=== PATIENT | male | born 1985 | race Caucasian/White ===

== ENCOUNTER → 2018-06-10 | Outpatient (CLI) | payer BC ==
[2018-06-10 11:03] LABS: Basophils # (A) 0.1 k/uL (0-0.2); Basophils % (A) 1 %; Eosinophils # (A) 0.2 k/uL (0-0.7); Eosinophils % (A) 3 %; HCT 45.6 % (39.0-53.0); HGB 15.7 gm/dL (13.0-17.5); Lymphocytes # (A) 2.3 k/uL (1.0-4.8); Lymphocytes % (A) 32 %; MCH 28.4 pg (25.0-35.0); MCHC 34.5 g/dL (31.0-37.0); MCV 82.5 fL (80.0-100.0); Mean Platelet Volume 7.3; Monocytes # (A) 0.3 k/uL (0-1.0); Monocytes % (A) 4 %; Neutrophils # (A) 4.1 k/uL (1.3-7.7); Neutrophils % (A) 58 %; Platelet Count 259 k/uL (150-450); RBC 5.52 m/uL (4.30-5.90); RDW 15.9 % (11.5-15.5); WBC 7.1 k/uL (3.8-10.6)
[2018-06-10 11:39] LABS: Appearance,Urine Clear (Clear); Bilirubin,Urine Negative (Negative); Blood,Urine Trace (Negative); Color,Urine Yellow; Glucose,Urine (UA) Negative (Negative); Ketones,Urine Negative (Negative); Leukocyte Esterase,Urine Negative (Negative); Mucus,Urine Rare /hpf; Nitrite,Urine Negative (Negative); PH, Urine 5.5 (5.0-8.0); Protein,Urine Negative (Negative); RBC,Urine 1 /hpf (0-5); Specific Gravity,Urine 1.027 (1.001-1.035); Urobilinogen,Urine <2.0 mg/dL (<2.0)
[2018-06-10 17:25] LABS: Albumin 4.7 g/dL (3.80-4.90); Albumin/Globulin Ratio 2.14 (1.60-3.17); Anion Gap 6.8 mmol/L (4.00-12.00); Calcium 9.6 mg/dL (8.7-10.3); Carbon Dioxide 27.2 mmol/L (21.6-31.8); Globulin 2.2 g/dL (1.6-3.3); LDL Cholesterol,Calculated 50.8 mg/dL (0.0-131.0); Potassium 4.9 mmol/L (3.5-5.5); Total Bilirubin 0.4 mg/dL (0.3-1.2); Total Protein 6.9 g/dL (6.2-8.2); VLDL Calculation 57.2 mg/dL (5.00-40.00)
[2018-06-10 17:33] LABS: T4, Free (Free Thyroxine) 0.9 ng/dL (0.80-1.80)
[2018-06-10 21:21] LABS: Hemoglobin A1C 5.2 % (4.0-6.0)
== END ==
LOC: LABWHC1 10:04
PROVIDERS: ATTEND Family Medicine
DX: Z00.00 Encounter for general adult medical examination without abnormal findings (principal); E66.01 Morbid (severe) obesity due to excess calories; N46.9 Male infertility, unspecified
CPT/HCPCS: 36415; 80053; 80061; 81001; 83036; 84439; 84443; 85025

== ENCOUNTER → 2021-01-05 | Outpatient (CLI) | payer BC ==
--- NOTE | 2021-01-05 15:43 | US ---
EXAMINATION TYPE: US venous doppler duplex LE RT DATE OF EXAM: 01/05/2021 3:29 PM COMPARISON: Previous exam 11/28/2015 CLINICAL HISTORY: M25.471 EFFUSION RIGHT ANKLE. Swelling right lower extremity SIDE PERFORMED: Right TECHNIQUE: The lower extremity deep venous system is examined utilizing real time linear array sonog juan with graded compression, doppler sonography and color-flow sonography. VESSELS IMAGED: Common Femoral Vein Deep Femoral Vein Greater Saphenous Vein * Femoral Vein Popliteal Vein Small Saphenous Vein * Proximal Calf Veins (* superficial vessels) There is normal flow, compressibility, vascular waveforms. Right Leg: Negative for DVT IMPRESSION: No evident deep venous thrombosis within the right lower extremity from the level of the knee centrally
== END | disposition home or self-care (01) ==
LOC: RADUSWWP 15:12
PROVIDERS: ATTEND Family Medicine
DX: M25.471 Effusion, right ankle (principal)

== ENCOUNTER 2022-06-11 09:38 | Inpatient (IN) | payer BC ==
[2022-06-11] MEDS ORDERED: IBUPROFEN 600 MG TAB PO STA (10:33)
[2022-06-11] MEDS ORDERED: ACETAMINOPHEN TAB 500 MG TAB PO STA (10:33)
[2022-06-11] MEDS ORDERED: HYDROmorphone 0.5 MG/0.5 ML SYRINGE IVP STA (10:33)
[2022-06-11] MEDS ORDERED: SODIUM CHLORIDE 0.9% 1,000 ML IV STA (10:33)
[2022-06-11] MEDS ORDERED: ONDANSETRON 4 MG/2 ML VIAL IVP STA (10:33)
--- NOTE | 2022-06-11 10:36 | ED ---
General Adult HPI - General Chief complaint: Abdominal Pain Stated complaint: Abd pain Time Seen by Provider: 06/11/22 10:05 Source: patient, RN notes reviewed, old records reviewed Mode of arrival: ambulatory Limitations: no limitations - History of Present Illness Initial comments: This is a 37-year-old male who presents emergency Department complaining of left lower quadrant abdominal pain. Patient states it started about 36 hours ago. Patient states the pain is gotten progressive worse. Patient states anytime he tries have a bowel movement it hurts. Patient states he has a fever. Patient is nauseous but denies vomiting. Patient denies any diarrhea. Patient's chest pain palpitations difficulty breathing shortest breath. - Related Data Home Medications Medication Instructions Recorded Confirmed Citalopram Hydrobromide [CeleXA] 10 mg PO HS 11/18/15 11/19/15 HYDROcodone/APAP 5-325MG [[place] 1 - 2 tab PO Q6H PRN 11/18/15 11/19/15 5-325] Multivitamin [Men's Multi-Vitamin] 1 each PO DAILY 11/18/15 11/19/15 Temazepam [Restoril] 30 mg PO HS PRN 11/18/15 11/19/15 traZODone HCL [Desyrel] 100 mg PO HS 11/18/15 11/19/15 Previous Rx's Medication Instructions Recorded HYDROcodone/APAP 5-325MG [[place] 5] 1 - 2 each PO Q6HR PRN #60 tab 11/19/15 Allergies Allergy/AdvReac Type Severity Reaction Status Date / Time erythromycin base Allergy Unknown Verified 06/11/22 10:01 Childhood Review of Systems ROS Statement: Those systems with pertinent positive or pertinent negative responses have been documented in the HPI. ROS Other: All systems not noted in ROS Statement are negative. Past Medical History History of Any Multi-Drug Resistant Organisms: None Reported Past Surgical History: Appendectomy, Orthopedic Surgery Past Psychological History: No Psychological Hx Reported Smoking Status: Never smoker Past Alcohol Use History: Rare Past Drug Use History: None Reported General Exam - General Exam Comments Initial Comments: GENERAL: Patient is well-developed and well-nourished. Patient is nontoxic and well-hy drated and is in mild distress. ENT: Neck is soft and supple. No significant lymphadenopathy is noted. Oropharynx is clear. Moist mucous membranes. Neck has full range of motion without eliciting any pain. EYES: The sclera were anicteric and conjunctiva were pink and moist. Extraocular movements were intact and pupils were equal round and reactive to light. Eyelids were unremarkable. PULMONARY: Unlabored respirations. Good breath sounds bilaterally. No audible rales rhonchi or wheezing was noted. CARDIOVASCULAR: There is a regular rate and rhythm without any murmurs gallops or rubs. ABDOMEN: Patient has left lower quadrant abdominal tenderness with some rebound. SKIN: Skin is clear with no lesions or rashes and otherwise unremarkable. NEUROLOGIC: Patient is alert and oriented x3. Cranial nerves II through XII are grossly intact. Motor and sensory are also intact. Normal speech, volume and content. Symmetrical smile. MUSCULOSKELETAL: Normal extremities with adequate strength and full range of motion. [id number] LYMPHATICS: No significant lymphadenopathy is noted PSYCHIATRIC: Normal psychiatric evaluation. Limitations: no limitations Course Vital Signs 06/11/22 06/11/22 06/11/22 09:58 10:01 11:30 Temperature 99 F 103.1 F H 101.3 F H Pulse Rate 98 Respiratory 18 Rate Blood Pressure 112/71 O2 Sat by Pulse 98 Oximetry 06/11/22 06/11/22 13:59 14:10 Temperature 98.7 F 97 F L Pulse Rate 78 Respiratory 18 Rate Blood Pressure 106/59 O2 Sat by Pulse 97 Oximetry Medical Decision Making - Medical Decision Making Was pt. sent in by a medical professional or institution (, PA, PLUMBING INSTRUCTOR, urgent care, hospital, or correction...) When possible be specific @ -No Did you speak to anyone other than the patient for history (EMS, parent, family, police, friend...)? What history was obtained from this source @ -No Did you review nursing and triage notes (agree or disagree)? Why? @ -I reviewed and agree with nursing and triage notes Were old charts reviewed (outside hosp., previous admission, EMS record, old EKG, old radiological studies, urgent care reports/EKG's, correction records)? Report findings @ -I reviewed prior lab work Differential Diagnosis (chest pain, altered mental status, abdominal pain women, abdominal pain men, vaginal bleeding, weakness, fever, dyspnea, syncope, headache, dizziness, GI bleed, back pain, seizure, CVA, palpatations, mental health, musculoskeletal)? @ -Differential Abdominal Pain Men: Appendicitis, cholecystitis, diverticulosis, ischemic bowel, pancreatitis, hepatitis, UTI, gastroenteritis, AAA, incarcerated hernia, bowel obstruction, constipation, inflammatory bowel, hepatitis, peptic ulcer disease, splenic infarction, perforated viscus, testicular torsion, this is not meant to be an all-inclusive list EKG interpreted by me (3pts min.). @ -As above X-rays interpreted by me (1pt min.). @ -None done CT interpreted by me (1pt min.). @ -CT of the abdomen and pelvis was interpreted by myself shows diverticula this was bowel perforation U/S interpreted by me (1pt. min.). @ -None What testing was considered but not performed or refused? (CT, X-rays, U/S, labs)? Why? @ -None What meds were considered but not given or refused? Why? @ -None Did you discuss the management of the patient with other professionals (professionals i.e. DrCari, PA, PLUMBING INSTRUCTOR, lab, RT, psych nurse, forensic social worker, cobol engineer, t eacher, staff combat information center officer, rn case manager hospice)? Give summary @ -I spoke with Dr. Alvarado and he did not want to admit the patient to his service because he didn't think there was immediate surgery necessary so he has to be admitted to medicine I told the medicine does not want admitted and he then repeated 2 admitted to medicine. I spoke with Dr. Goldberg he was reluctant to take it but because the surgeon refused he took the patient as his admission Was smoking cessation discussed for >3mins.? @ -No Was critical care preformed (if so, how long)? @ -35 minutes Were there social determinants of health that impacted care today? How? (Homelessness, low income, unemployed, alcoholism, drug addiction, transportation, low edu. Level, literacy, decrease access to med. care, long term, rehab)? @ -No Was there de-escalation of care discussed even if they declined (Discuss DNR or withdrawal of care, Hospice)? DNR status @ -No What co-morbidities impacted this encounter? (DM, HTN, Smoking, COPD, CAD, Cancer, CVA, ARF, Chemo, Hep., AIDS, mental health diagnosis, sleep apnea, morbid obesity)? @ -None Was patient admitted / discharged? Hospital course, mention meds given and route, prescriptions, significant lab abnormalities, going to OR and other pertinent info. @ -Patient's CT showed CT with bowel perforation. I spoke with Dr. Goldberg admitted the patient initially refused but because the surgeon then refused to take the patient Dr. Goldberg reluctantly took the patient. Patient was given antibiotics in the emergency department pain medication as well as Zofran. Undiagnosed new problem with uncertain prognosis? @ -No Drug Therapy requiring intensive monitoring for toxicity (Heparin, Nitro, I nsulin, Cardizem)? @ -No Were any procedures done? @ -No Diagnosis/symptom? @ -Diverticulitis with perforation Acute, or Chronic, or Acute on Chronic? @ -Acute Uncomplicated (without systemic symptoms) or Complicated (systemic symptoms)? @ -Complicated Side effects of treatment? @ -No Exacerbation, Progression, or Severe Exacerbation? @ -No Poses a threat to life or bodily function? How? (Chest pain, [place], [place], pneumonia, PE, COPD, DKA, ARF, appy, cholecystitis, CVA, Diverticulitis, Homicidal, Suicidal, threat to staff... and all critical care pts) @ -Yes this could lead to sepsis and could lead to end organ dysfunction - Lab Data Result diagrams: 06/11/22 10:40 06/11/22 10:40 Lab Results 06/11/22 06/11/22 06/11/22 Range/Units 10:40 10:40 10:40 WBC 9.5 (3.8-10.6) k/uL RBC 5.21 (4.30-5.90) m/uL Hgb 15.1 (13.0-17.5) gm/dL Hct 43.1 (39.0-53.0) % MCV 82.7 (80.0-100.0) fL MCH 29.0 (25.0-35.0) pg MCHC 35.1 (31.0-37.0) g/dL RDW 14.7 (11.5-15.5) % Plt Count 196 (150-450) k/uL MPV 7.7 Neutrophils % 84 % Lymphocytes % 9 % Monocytes % 4 % Eosinophils % 2 % Basophils % 0 % Neutrophils # 8.0 H (1.3-7.7) k/uL Lymphocytes # 0.9 L (1.0-4.8) k/uL Monocytes # 0.4 (0-1.0) k/uL Eosinophils # 0.2 (0-0.7) k/uL Basophils # 0.0 (0-0.2) k/uL Sodium 140 (137-145) mmol/L Potassium 4.3 (3.5-5.1) mmol/L Chloride 104 (98-107) mmol/L Carbon Dioxide 27 (22-30) mmol/L Anion Gap 9 mmol/L BUN 15 (9-20) mg/dL Creatinine 1.09 (0.66-1.25) mg/dL Est GFR (CKD-EPI)AfAm >90 (>60 ml/min/1.73 sqM) Est GFR (CKD-EPI)NonAf 85 (>60 ml/min/1.73 sqM) Glucose 120 H (74-99) mg/dL Plasma Lactic Acid Claude 1.1 (0.7-2.0) mmol/L Calcium 9.0 (8.4-10.2) mg/dL Total Bilirubin 1.6 H (0.2-1.3) mg/dL AST 21 (17-59) U/L ALT 39 (4-49) U/L Alkaline Phosphatase 71 (38-126) U/L Total Protein 7.0 (6.3-8.2) g/dL Albumin 4.2 (3.5-5.0) g/dL Amylase 38 (30-110) U/L Lipase 51 (23-300) U/L Urine Color Urine Appearance (Clear) Urine pH (5.0-8.0) Ur Specific [place] (1.001-1.035) Urine Protein (Negative) Urine Glucose (UA) (Negative) Urine Ketones (Negative) Urine Blood (Negative) Urine Nitrite (Negative) Urine Bilirubin (Negative) Urine Urobilinogen (<2.0) mg/dL Ur Leukocyte Esterase (Negative) Urine RBC (0-5) /hpf Urine WBC (0-5) /hpf 06/11/22 Range/Units 12:00 WBC (3.8-10.6) k/uL RBC (4.30-5.90) m/uL Hgb (13.0-17.5) gm/dL Hct (39.0-53.0) % MCV (80.0-100.0) fL MCH (25.0-35.0) pg MCHC (31.0-37.0) g/dL RDW (11.5-15.5) % Plt Count (150-450) k/uL MPV Neutrophils % % Lymphocytes % % Monocytes % % Eosinophils % % Basophils % % Neutrophils # (1.3-7.7) k/uL Lymphocytes # (1.0-4.8) k/uL Monocytes # (0-1.0) k/uL Eosinophils # (0-0.7) k/uL Basophils # (0-0.2) k/uL Sodium (137-145) mmol/L Potassium (3.5-5.1) mmol/L Chloride (98-107) mmol/L Carbon Dioxide (22-30) mmol/L Anion Gap mmol/L BUN (9-20) mg/dL Creatinine (0.66-1.25) mg/dL Est GFR (CKD-EPI)AfAm (>60 ml/min/1.73 sqM) Est GFR (CKD-EPI)NonAf (>60 ml/min/1.73 sqM) Glucose (74-99) mg/dL Plasma Lactic Acid Claude (0.7-2.0) mmol/L Calcium (8.4-10.2) mg/dL Total Bilirubin (0.2-1.3) mg/dL AST (17-59) U/L ALT (4-49) U/L Alkaline Phosphatase (38-126) U/L Total Protein (6.3-8.2) g/dL Albumin (3.5-5.0) g/dL Amylase (30-110) U/L Lipase (23-300) U/L Urine Color Yellow Urine Appearance Clear (Clear) Urine pH 6.5 (5.0-8.0) Ur Specific [place] >1.050 H (1.001-1.035) Urine Protein Trace H (Negative) Urine Glucose (UA) Negative (Negative) Urine Ketones Trace H (Negative) Urine Blood Small H (Negative) Urine Nitrite Negative (Negative) Urine Bilirubin Negative (Negative) Urine Urobilinogen <2.0 (<2.0) mg/dL Ur Leukocyte Esterase Negative (Negative) Urine RBC 10 H (0-5) /hpf Urine WBC <1 (0-5) /hpf Critical Care Time Critical Care Time: Yes Total Critical Care Time: 35 Disposition Clinical Impression: Diverticulitis of colon with perforation Disposition: ADMITTED IP TO THIS HOSP Referrals: Greg Pascual DO [Primary Care Provider] - 1-2 days Time of Disposition: 14:14
[2022-06-11 10:51] LABS: Basophils % (A) 0 %; Eosinophils # (A) 0.2 k/uL (0-0.7); Eosinophils % (A) 2 %; HCT 43.1 % (39.0-53.0); HGB 15.1 gm/dL (13.0-17.5); Lymphocytes # (A) 0.9 k/uL (1.0-4.8); Lymphocytes % (A) 9 %; MCHC 35.1 g/dL (31.0-37.0); MCV 82.7 fL (80.0-100.0); Mean Platelet Volume 7.7; Monocytes # (A) 0.4 k/uL (0-1.0); Monocytes % (A) 4 %; Neutrophils % (A) 84 %; Platelet Count 196 k/uL (150-450); RBC 5.21 m/uL (4.30-5.90); RDW 14.7 % (11.5-15.5); WBC 9.5 k/uL (3.8-10.6)
[2022-06-11 11:02] LABS: ALT 39 U/L (4-49); AST 21 U/L (17-59); African American GFR (CKD) >90 (>60 ml/min/1.73 sqM); Albumin 4.2 g/dL (3.5-5.0); Alkaline Phosphatase 71 U/L (38-126); Amylase 38 U/L (30-110); Anion Gap 9 mmol/L; Blood Urea Nitrogen 15 mg/dL (9-20); Carbon Dioxide 27 mmol/L (22-30); Chloride 104 mmol/L (98-107); Glucose 120 mg/dL (74-99); Lipase 51 U/L (23-300); Non-African American GFR(CKD) 85 (>60 ml/min/1.73 sqM); Potassium 4.3 mmol/L (3.5-5.1); Sodium 140 mmol/L (137-145); Total Bilirubin 1.6 mg/dL (0.2-1.3)
--- NOTE | 2022-06-11 12:00 | CT ---
EXAMINATION TYPE: CT abdomen pelvis w con DATE OF EXAM: 06/11/2022 COMPARISON: None. HISTORY: LLQ abdominal pain and nausea. CT DLP: 3354.4 mGycm, Automated Exposure Control for Dose Reduction was Utilized. CONTRAST: CT scan of the abdomen and pelvis is performed with oral and with IV Contrast, patient injected with 100ml mL of Isovue 300. FINDINGS: LUNG BASES: No significant abnormality is appreciated. LIVER/GB: Liver is heterogeneously hypodense suggesting diffuse fatty infiltration. A few foci of air are seen in the left hepatic dome. Findings consistent with portal venous air. PANCREAS: No significant abnormality is seen. SPLEEN: Splenomegaly at 15.3 cm long axis coronal image 73. ADRENALS: No significant abnormality is seen. KIDNEYS: No significant abnormality is seen. BOWEL: Stomach poorly distended and thus suboptimally evaluated. No suspicious small or large bowel d ilatation. Diverticula within the left and sigmoid colon are identified. There is moderate to severe ill-defined fluid and fat stranding surrounding the proximal sigmoid colon in the left pelvis. Free a ir at this level is identified extending up the left abdominal retroperitoneum along the course of th e draining left gonadal vein. No well-formed fluid collection or abscess at this level is present. So mewhat redundant sigmoid colon incidentally noted. PROSTATE/SEMINAL VESICLES: No gross abnormality seen. LYMPH NODES: No greater than 1cm abdominal or pelvic lymph nodes are appreciated. OSSEOUS STRUCTURES: Mild acetabular spurring and joint space loss of both hips. OTHER: No significant additional abnormality is seen. IMPRESSION: CT findings consistent with perforated acute diverticulitis proximal sigmoid colon level of the left pelvis as detailed above. Case discussed with ordering ER physician via telephone at time of dictation.
[2022-06-11] MEDS ORDERED: AMPICILLIN-SULBACTAM 3 GM in SODIUM CHLORIDE 0.9% 100 ML IVPB STA (12:31)
[2022-06-11] MEDS ORDERED: NITROGLYCERIN SL TABS 0.4 MG TAB SUBLINGUAL PRN (12:34)
[2022-06-11 13:24] LABS: Appearance,Urine Clear (Clear); Bilirubin,Urine Negative (Negative); Blood,Urine Small (Negative); Color,Urine Yellow; Glucose,Urine (UA) Negative (Negative); Ketones,Urine Trace (Negative); Leukocyte Esterase,Urine Negative (Negative); Nitrite,Urine Negative (Negative); PH, Urine 6.5 (5.0-8.0); Protein,Urine Trace (Negative); RBC,Urine 10 /hpf (0-5); Urobilinogen,Urine <2.0 mg/dL (<2.0); WBC,Urine <1 /hpf (0-5)
[2022-06-11 13:40] LABS: Specific Gravity,Urine >1.050 (1.001-1.035)
[2022-06-11] MEDS ORDERED: SODIUM CHLORIDE 0.9% 1,000 ML IV ONE (14:35)
[2022-06-11] MEDS ORDERED: LORazepam 0.5 MG TAB PO PRN (16:06)
[2022-06-11] MEDS ORDERED: MELATONIN 3 MG TABLET PO PRN (16:06)
[2022-06-11] MEDS ORDERED: NALOXONE 0.4 MG/ML 1 ML VIAL IV PRN (16:06)
[2022-06-11] MEDS ORDERED: HYDROcodone/APAP 5-325MG 1 EACH TAB PO PRN (16:35)
[2022-06-11] MEDS: ENOXAPARIN 40 MG/0.4 ML SYRINGE SQ SCH (16:39)
--- NOTE | 2022-06-11 17:54 | P.HPIM ---
History of Present Illness H&P Date: 06/11/22 Chief Complaint: Abdominal pain This is a pleasant 37-year-old patient follows with Dr. Pascual. Chronic stable medical conditions include gout, depression, anxiety. Patient accompanied by his in the ER. 2 nights ago patient started off with lower abdominal pain. Progressively got worse. Yesterday pain became rather severe in the evening. Patient said having fever or chills. Nausea. At her baseline patient's had 4-5 bowel movements a day for many years. Computed tomography scan in the ER showed perforated diverticulitis with some free air. Surgery population health manager was was contacted, he wanted the patient to be admitted to internal medicine patient was started on IV Unasyn Review of systems: GEN.: Fever chills decreased appetite EYES: None HEENT: None NECK: None RESPIRATORY: None CARDIOVASCULAR: None GASTROINTESTINAL: Chronic diarrhea GENITOURINARY: None MUSCULOSKELETAL: None LYMPHATICS: None HEMATOLOGICAL: None PSYCHIATRY: None NEUROLOGICAL: None. Past medical history to include: Gout, depression, anxiety Social history: . 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 Alcohol rarely. No smoking. Physical examination: VITAL SIGNS: 101.3, 78, 18, 106/59, 97% room air GENERAL: BMI 43, declining in bed, but uncomfortable. EYES: Pupils equal. Conjunctiva normal. HEENT: External appearance of nose and ears normal, oral cavity grossly normal. NECK: JVD not raised; masses not palpable. HEART: First and second heart sounds are normal; no edema. LUNGS: Respiratory rate normal; clear to auscultation. ABDOMEN: Soft, left lower quadrant tenderness, no guarding rigidity, liver spleen not palpable, no masses palpable. PSYCH: Alert and oriented x3; mood and affect normal. MUSCULOSKELETAL:No Clubbing/cyanosis;muscles-grossly intact NEUROLOGICAL: Cranial nerves grossly intact; no facial asymmetry, power and sensation grossly intact. LYMPHATICS: No lymph nodes palpable in the axilla and neck INVESTIGATIONS, reviewed in the clinical context: White count 9.5 hemoglobin 15.1 platelets 196 potassium 4.3 BUN 15 creatinine 1.[address] angiogram abdomen pelvis: Perforated acute diverticulitis proximal sigmoid colon. More details and the result Assessment and plan: -Acute sigmoid colon diverticulitis with perforation. With causing sepsis with a fever no 101.3 Start IV Zosyn. Nothing by mouth except ice chips, medications. Follow with general surgery -Sepsis secondary to sigmoid diverticulitis and perforation IV fluids. IV antibiotics -Chronic gout/hyperuricemia Allopurinol -Anxiety depression otherwise specified Celexa, trazodone -Chronic insomnia Trazodone -Morbid obesity BMI 43 Weight loss measures IV Zosyn. Nothing by mouth except medications. Follow with general surgery. Care was discussed with the patient at the bedside. Questions answered. Past Medical History History of Any Multi-Drug Resistant Organisms: None Reported Past Surgical History: Appendectomy, Orthopedic Surgery Past Psychological History: No Psychological Hx Reported Smoking Status: Never smoker Past Alcohol Use History: Rare Past Drug Use History: None Reported Medications and Allergies Home Medications Medication Instructions Recorded Confirmed Type Citalopram Hydrobromide [CeleXA] 10 mg PO HS 11/18/15 06/11/22 History traZODone HCL [Desyrel] 100 mg PO HS 11/18/15 06/11/22 History Multivitamins, Thera [Multivitamin 1 tab PO HS 06/11/22 06/11/22 History (formulary)] allopurinoL 100 mg PO HS 06/11/22 06/11/22 History Allergies Allergy/AdvReac Type Severity Reaction Status Date / Time erythromycin base Allergy Rash/Hives Verified 06/11/22 14:15 Physical Exam Vitals: Vital Signs Temp Pulse Pulse Resp BP BP Pulse Ox 06/11/22 17:20 98.5 F 92 17 124/80 97 06/11/22 15:39 18 136/90 98 06/11/22 14:10 97 F L 78 18 106/59 97 06/11/22 13:59 98.7 F 06/11/22 11:30 101.3 F H 06/11/22 10:01 103.1 F H 06/11/22 09:58 99 F 98 18 112/71 98 Intake and Output 06/11/22 06/11/22 06/11/22 06:59 14:59 22:59 Other: Weight 151.953 kg Results CBC & Chem 7: 06/11/22 10:40 06/11/22 10:40 Labs: Abnormal Lab Results - Last 24 Hours (Table) 06/11/22 06/11/22 06/11/22 Range/Units 10:40 10:40 12:00 Neutrophils # 8.0 H (1.3-7.7) k/uL Lymphocytes # 0.9 L (1.0-4.8) k/uL Glucose 120 H (74-99) mg/dL Total Bilirubin 1.6 H (0.2-1.3) mg/dL Ur Specific [place] >1.050 H (1.001-1.035) Urine Protein Trace H (Negative) Urine Ketones Trace H (Negative) Urine Blood Small H (Negative) Urine RBC 10 H (0-5) /hpf
[2022-06-11] MEDS ORDERED: PIPERACILLIN-TAZOBACTAM 3.375 GM in SODIUM CHLORIDE 0.9% 100 ML IVPB SCH (18:00)
[2022-06-11] MEDS ORDERED: AMPICILLIN-SULBACTAM 3 GM in SODIUM CHLORIDE 0.9% 100 ML IVPB SCH ×4 (18:00)
[2022-06-11] MEDS ORDERED: NITROGLYCERIN OINT 1 INCH/GM PACKET TOPICAL SCH (18:00)
[2022-06-11] MEDS ORDERED: PIPERACILLIN-TAZOBACTAM 4.5 GM in SODIUM CHLORIDE 0.9% 100 ML IVPB SCH (19:42)
[2022-06-11] MEDS: ONDANSETRON 4 MG/2 ML VIAL IVP PRN (20:55)
[2022-06-11] MEDS: CITALOPRAM HYDROBROMIDE 10 MG TAB PO SCH (20:56)
[2022-06-11] MEDS: ACETAMINOPHEN TAB 325 MG TAB PO PRN (20:56)
[2022-06-11] MEDS: MULTIVITAMINS, THERA 1 EACH TAB PO SCH (20:56)
[2022-06-11] MEDS: HYDROmorphone 0.5 MG/0.5 ML SYRINGE IVP PRN (20:56)
[2022-06-11] MEDS: traZODone HCL 100 MG TAB PO SCH (20:57)
[2022-06-11] MEDS: allopurinoL 100 MG TAB PO SCH (20:57)
[2022-06-12] MEDS ORDERED: PIPERACILLIN-TAZOBACTAM 3.375 GM in SODIUM CHLORIDE 0.9% 100 ML IVPB SCH (03:00)
[2022-06-12 06:22] LABS: Basophils % (A) 0 %; Eosinophils # (A) 0.1 k/uL (0-0.7); Eosinophils % (A) 1 %; HCT 40.3 % (39.0-53.0); HGB 13.6 gm/dL (13.0-17.5); Lymphocytes # (A) 1.4 k/uL (1.0-4.8); Lymphocytes % (A) 15 %; MCH 28.4 pg (25.0-35.0); MCHC 33.7 g/dL (31.0-37.0); MCV 84.4 fL (80.0-100.0); Mean Platelet Volume 7.3; Monocytes # (A) 0.7 k/uL (0-1.0); Monocytes % (A) 7 %; Neutrophils # (A) 6.7 k/uL (1.3-7.7); Neutrophils % (A) 75 %; Platelet Count 185 k/uL (150-450); RBC 4.77 m/uL (4.30-5.90); RDW 14.4 % (11.5-15.5)
[2022-06-12] MEDS: ONDANSETRON 4 MG/2 ML VIAL IVP PRN ×3 (06:22→16:51)
[2022-06-12] MEDS: HYDROmorphone 0.5 MG/0.5 ML SYRINGE IVP PRN ×3 (06:22→20:57)
[2022-06-12 06:23] LABS: ALT 32 U/L (4-49); AST 19 U/L (17-59); African American GFR (CKD) >90 (>60 ml/min/1.73 sqM); Albumin 3.6 g/dL (3.5-5.0); Albumin/Globulin Ratio 1.4; Alkaline Phosphatase 65 U/L (38-126); Anion Gap 7 mmol/L; Blood Urea Nitrogen 15 mg/dL (9-20); Calcium 8.5 mg/dL (8.4-10.2); Carbon Dioxide 26 mmol/L (22-30); Chloride 106 mmol/L (98-107); Globulin 2.6 g/dL; Glucose 105 mg/dL (74-99); Non-African American GFR(CKD) >90 (>60 ml/min/1.73 sqM); Potassium 4.1 mmol/L (3.5-5.1); Sodium 139 mmol/L (137-145); Total Bilirubin 1.5 mg/dL (0.2-1.3); Total Protein 6.2 g/dL (6.3-8.2)
[2022-06-12] MEDS: ENOXAPARIN 40 MG/0.4 ML SYRINGE SQ SCH (08:50)
[2022-06-12] MEDS ORDERED: ASPIRIN 325 MG TAB PO SCH (09:00)
[2022-06-12] MEDS: PIPERACILLIN-TAZOBACTAM 3.375 GM in SODIUM CHLORIDE 0.9% 100 ML IVPB SCH ×2 (11:09→20:51)
[2022-06-12] MEDS ORDERED: VANCOMYCIN IV PER PHARMACY 1 EACH MISC MISCELLANE PRN (12:24)
[2022-06-12] MEDS ORDERED: VANCOMYCIN 2,500 MG in SODIUM CHLORIDE 0.9% 500 ML 500 ML IVPB ONE (14:00)
--- NOTE | 2022-06-12 16:49 | P.PN ---
Progress Note - Text Progress Note Date: 06/12/22 Chief Complaint: Abdominal pain This is a pleasant 37-year-old patient follows with Dr. Pascual. Chronic stable medical conditions include gout, depression, anxiety. Patient accompanied by his in the ER. 2 nights ago patient started off with lower abdominal pain. Progressively got worse. Yesterday pain became rather severe in the evening. Patient said having fever or chills. Nausea. At her baseline patient's had 4-5 bowel movements a day for many years. Computed tomography scan in the ER showed perforated diverticulitis with some free air. Surgery refrigeration service technician was was contacted, he wanted the patient to be admitted to internal medicine patient was started on IV Unasyn 06/12/2022: Up in bed. Pain better controlled with pain medications. No nausea vomiting. No BM. IV Zosyn. Patient was seen by surgery. Discussed with patient. Increase activity as tolerated. Active Medications Acetaminophen (Acetaminophen Tab 325 Mg Tab) 650 mg PO Q6HR PRN PRN Reason: Mild Pain or Fever > 100.5 Last Admin: 06/11/22 20:56 Dose: 650 mg Hydrocodone Bitart/Acetaminophen (Hydrocodone/Apap 5-325mg 1 Each Tab) 1 each PO Q6HR PRN PRN Reason: Moderate to Severe Pain (4-10) Last Admin: 06/11/22 16:38 Dose: 1 each Allopurinol (Allopurinol 100 Mg Tab) 100 mg PO HS [facility] Last Admin: 06/11/22 20:57 Dose: 100 mg Citalopram Hydrobromide (Citalopram Hydrobromide 10 Mg Tab) 10 mg PO HS [facility] Last Admin: 06/11/22 20:56 Dose: 10 mg Enoxaparin Sodium (Enoxaparin 40 Mg/0.4 Ml Syringe) 40 mg SQ DAILY [facility] Last Admin: 06/12/22 08:50 Dose: 40 mg Hydromorphone HCl (Hydromorphone 0.5 Mg/0.5 Ml Syringe) 0.5 mg IVP Q4HR PRN PRN Reason: Pain Last Admin: 06/12/22 11:17 Dose: 0.5 mg Piperacillin Sod/Tazobactam (Sod 3.375 gm/ Sodium Chloride) 100 mls @ 25 mls/hr IVPB Q8H [facility]; Protocol Last Admin: 06/12/22 11:09 Dose: 25 mls/hr Vancomycin HCl 2,500 mg/ (Sodium Chloride) 500 mls @ 167 mls/hr IVPB ONCE ONE Stop: 06/12/22 16:59 Last Admin: 06/12/22 15:06 Dose: 167 mls/hr Vancomycin HCl 2,500 mg/ (Sodium Chloride) 500 mls @ 167 mls/hr IVPB Q8H [facility] Lorazepam (Lorazepam 0.5 Mg Tab) 0.5 mg PO Q6HR PRN PRN Reason: Anxiety Melatonin (Melatonin 3 Mg Tablet) 3 mg PO HS PRN PRN Reason: Insomnia Multivitamins (Multivitamins, Thera 1 Each Tab) 1 each PO HS [facility] Last Admin: 06/11/22 20:56 Dose: 1 each Naloxone HCl (Naloxone 0.4 Mg/Ml 1 Ml Vial) 0.2 mg IV Q2M PRN PRN Reason: Opioid Reversal Ondansetron HCl (Ondansetron 4 Mg/2 Ml Vial) 4 mg IVP Q4HR PRN PRN Reason: Nausea And Vomiting Last Admin: 06/12/22 11:17 Dose: 4 mg Trazodone HCl (Trazodone Hcl 100 Mg Tab) 100 mg PO HS [facility] Last Admin: 06/11/22 20:57 Dose: 100 mg Past medical history to include: Gout, depression, anxiety Social history: . 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 No smoking. Physical examination: VITAL SIGNS: T-max 102.4 last night, 84, 18, 11 2 x 71, 95% room air GENERAL: BMI 43, up in bed, but uncomfortable EYES: Pupils equal. Conjunctiva normal. HEENT: External appearance of nose and ears normal, oral cavity grossly normal. NECK: JVD not raised; masses not palpable. HEART: First and second heart sounds are normal; no edema. LUNGS: Respiratory rate normal; clear to auscultation. ABDOMEN: Soft, left lower quadrant tenderness, no guarding rigidity, liver spleen not palpable, no masses palpable. PSYCH: Alert and oriented x3; mood and affect normal. INVESTIGATIONS, reviewed in the clinical context: June 12: White count 9 hemoglobin 13.6 platelets 185 potassium 4.1 creatinine is 0.98 White count 9.5 hemoglobin 15.1 platelets 196 potassium 4.3 BUN 15 creatinine 1.[address] angiogram abdomen pelvis: Perforated acute diverticulitis proximal sigmoid colon. More details and the result Assessment and plan: -Acute sigmoid colon diverticulitis with perforation. causing sepsis : Slow to respond IV Zosyn. Nothing by mouth except ice chips, medications. Follow with general surgery -Sepsis secondary to sigmoid diverticulitis and perforation: Slow to respond IV fluids. IV antibiotics -Chronic gout/hyperuricemia Allopurinol -Anxiety depression otherwise specified Celexa, trazodone -Chronic insomnia Trazodone -Morbid obesity BMI 43 Weight loss measures IV Zosyn. Nothing by mouth except medications. Follow with general surgery. Discussed with patient. Increase activity as tolerated.
[2022-06-12] MEDS: ACETAMINOPHEN TAB 325 MG TAB PO PRN (16:55)
[2022-06-12] MEDS: allopurinoL 100 MG TAB PO SCH (20:49)
[2022-06-12] MEDS: traZODone HCL 100 MG TAB PO SCH (20:49)
[2022-06-12] MEDS: CITALOPRAM HYDROBROMIDE 10 MG TAB PO SCH (20:49)
[2022-06-12] MEDS: MULTIVITAMINS, THERA 1 EACH TAB PO SCH (20:49)
--- NOTE | 2022-06-12 21:18 | P.CONS ---
History of Present Illness - Reason for Consult Consult date: 06/12/22 Bacteremia Requesting physician: Bruno Thomas - Chief Complaint Abdominal pain x 3 days - History of Present Illness Patient is a 37-year-old male with no significant past medical history presenting to the ER for evaluation of left-sided abdominal pain that the pain has been going on for about 3 days before presentation the hospital pain has been mostly left lower quadrant area more of a dull aching and constant pain intensity almost from 6-8 out of 10 and no radiation patient has been nauseated but no vomiting did have diarrhea constipation and no diarrhea and started having a fever with the symptoms the patient presented to hospital on arrival to the ER the patient did have a fever of 103.1 F patient did have a normal white count kidney function was normal liver enzymes are normal urine has been negative patient did have a CT of abdominal pelvis with evidence of perforated acute diverticulitis proximal sigmoid colon no mention of any abscess patient did have blood cultures drawn which came back positive with gram-positive cocci infectious he was consulted for further management of antibiotic therapy Review of Systems Positive point has been mentioned in the HPI rest of the systems are negative Past Medical History History of Any Multi-Drug Resistant Organisms: None Reported Past Surgical History: Appendectomy, Orthopedic Surgery Past Psychological History: No Psychological Hx Reported Smoking Status: Never smoker Past Alcohol Use History: Rare Past Drug Use History: None Reported - Past Family History Father Family Medical History: No Reported History Medications and Allergies Home Medications Medication Instructions Recorded Confirmed Type Citalopram Hydrobromide [CeleXA] 10 mg PO HS 11/18/15 06/11/22 History traZODone HCL [Desyrel] 100 mg PO HS 11/18/15 06/11/22 History Multivitamins, Thera [Multivitamin 1 tab PO HS 06/11/22 06/11/22 History (formulary)] allopurinoL 100 mg PO HS 06/11/22 06/11/22 History Acetaminophen Tab [Tylenol] 650 mg PO Q6HR PRN tab 06/16/22 Rx Amoxic-Pot Clav 875-125Mg 1 tab PO BID 10 Days #20 tab 06/16/22 Rx [Augmentin 875-125] Allergies Allergy/AdvReac Type Severity Reaction Status Date / Time erythromycin base Allergy Rash/Hives Verified 06/11/22 14:15 Physical Exam Vitals: Vital Signs Temp Pulse Pulse Resp BP BP Pulse Ox 06/12/22 07:04 100.2 F H 82 18 118/75 95 06/12/22 01:50 99 F 82 18 108/61 96 06/11/22 20:38 100.5 F H 06/11/22 19:13 102.4 F H 93 20 121/68 96 06/11/22 17:20 98.5 F 92 17 124/80 97 06/11/22 15:39 18 136/90 98 06/11/22 14:10 97 F L 78 18 106/59 97 06/11/22 13:59 98.7 F Intake and Output 06/11/22 06/12/22 06/12/22 22:59 06:59 14:59 Other: # Voids 0 3 Weight 151.953 kg GENERAL DESCRIPTION: Middle-aged male lying in bed, no distress. No tachypnea or accessory muscle of respiration use. HEENT: Shows Pallor , no scleral icterus. Oral mucous membrane is dry. No pharyngeal erythema or thrush NECK: Trachea central, no thyromegaly. LUNGS: Unlabored breathing. Clear to auscultation anteriorly. No wheeze or crackle. HEART: S1, S2, regular rate and rhythm. No loud murmur ABDOMEN: Soft, mild distention left-sided tenderness EXTREMITIES: No edema of feet. SKIN: No rash, no masses palpable. NEUROLOGICAL: The patient is awake, alert, oriented x3, mood and affect normal. Results CBC & Chem 7: 06/16/22 06:58 06/16/22 06:58 Labs: Abnormal Lab Results - Last 24 Hours (Table) 06/11/22 06/12/22 Range/Units 12:00 05:34 Glucose 105 H (74-99) mg/dL Total Bilirubin 1.5 H (0.2-1.3) mg/dL Total Protein 6.2 L (6.3-8.2) g/dL Ur Specific [place] >1.050 H (1.001-1.035) Urine Protein Trace H (Negative) Urine Ketones Trace H (Negative) Urine Blood Small H (Negative) Urine RBC 10 H (0-5) /hpf Microbiology - Last 24 Hours (Table) 06/11/22 12:30 Blood Culture - Final Blood 06/11/22 12:45 Blood Culture - Final Blood Assessment and Plan (1) Diverticulitis of colon with perforation Status: Acute Priority: Medium Code(s): K57.20 - DVTRCLI OF LG INT W P ERFORATION AND ABSCESS W/O BLEEDING SNOMED Code(s): 31214404 Plan: 1patient presented to the hospital with acute abdominal pain left lower [place] drant area this patient did have history of constipation with evidence of perforated diverticulitis and will need to call for the enteric gram-negative both aerobes and anaerobes. 2patient now with a positive blood culture with gram-positive cocci with a question of possible skin contamination if finalized as staph epi or less likely related to his perforated abdominal diverticulitis. 3we will add vancomycin while waiting for the ID of this pathogen and blood cultures will be repeated document clearance of his bacteremia 4-continue with the Zosyn for his underlying perforated diverticulitis and bowel rest We will follow on clinical condition and cultures to further adjust medication if needed Thank you for this consultation we will follow the patient along with you Time with Patient: Greater than 30
[2022-06-12] MEDS ORDERED: VANCOMYCIN 2,500 MG in SODIUM CHLORIDE 0.9% 500 ML 500 ML IVPB SCH (22:00)
[2022-06-13] MEDS: PIPERACILLIN-TAZOBACTAM 3.375 GM in SODIUM CHLORIDE 0.9% 100 ML IVPB SCH ×3 (02:33→17:43)
[2022-06-13 06:09] LABS: Basophils % (A) 0 %; Eosinophils # (A) 0.2 k/uL (0-0.7); Eosinophils % (A) 3 %; HCT 39.1 % (39.0-53.0); HGB 13.4 gm/dL (13.0-17.5); Lymphocytes # (A) 1.5 k/uL (1.0-4.8); Lymphocytes % (A) 19 %; MCH 28.5 pg (25.0-35.0); MCHC 34.2 g/dL (31.0-37.0); MCV 83.2 fL (80.0-100.0); Mean Platelet Volume 7.9; Monocytes # (A) 0.4 k/uL (0-1.0); Monocytes % (A) 5 %; Neutrophils # (A) 5.7 k/uL (1.3-7.7); Neutrophils % (A) 71 %; Platelet Count 210 k/uL (150-450); RDW 14.3 % (11.5-15.5)
[2022-06-13] MEDS: HYDROmorphone 0.5 MG/0.5 ML SYRINGE IVP PRN (06:24)
[2022-06-13] MEDS: ONDANSETRON 4 MG/2 ML VIAL IVP PRN (06:25)
[2022-06-13 06:31] LABS: ALT 35 U/L (4-49); AST 22 U/L (17-59); African American GFR (CKD) >90 (>60 ml/min/1.73 sqM); Albumin 3.5 g/dL (3.5-5.0); Albumin/Globulin Ratio 1.3; Alkaline Phosphatase 73 U/L (38-126); Anion Gap 11 mmol/L; Blood Urea Nitrogen 16 mg/dL (9-20); Calcium 8.4 mg/dL (8.4-10.2); Carbon Dioxide 22 mmol/L (22-30); Chloride 105 mmol/L (98-107); Globulin 2.6 g/dL; Glucose 93 mg/dL (74-99); Non-African American GFR(CKD) >90 (>60 ml/min/1.73 sqM); Potassium 3.8 mmol/L (3.5-5.1); Sodium 138 mmol/L (137-145); Total Bilirubin 1.2 mg/dL (0.2-1.3); Total Protein 6.1 g/dL (6.3-8.2)
[2022-06-13 06:41] LABS: C Reactive Protein 21.4 mg/dL (<1.0)
[2022-06-13] MEDS: ENOXAPARIN 40 MG/0.4 ML SYRINGE SQ SCH (08:52)
[2022-06-13] MEDS: IOPAMIDOL CONTRAST (ORAL USE) VIAL PO PRN ×2 (10:01→11:00)
--- NOTE | 2022-06-13 11:57 | CT ---
EXAMINATION TYPE: CT abdomen pelvis w con DATE OF EXAM: 06/13/2022 COMPARISON: 06/11/2022 HISTORY: bowel perf CT DLP: 3760.4 mGycm Automated exposure control for dose reduction was used. TECHNIQUE: Helical acquisition of images was performed from the lung bases through the pelvis. CONTRAST: Performed with Oral Contrast and with IV Contrast, patient injected with 100 mL of Isovue 300. FINDINGS: The lung bases are clear. There is marked thickening of the proximal sigmoid colon with moderate inflammation in the adam-: Fat . There are droplets of extraluminal air consistent with bowel perforation. The degree of extralumina l air is decreased significantly since the prior study. The findings are consistent with acute divert iculitis with bowel perforation. There is no bowel obstruction. There is no discrete abscess within the abdomen or pelvis. The gallbladder is normal. There is no focal mass or organomegaly involving the liver, pancreas, spleen or adrenal glands. There is no solid renal mass, renal calculus or hydronephrosis. Caliber the abdominal aorta is normal. The osseous structures are intact IMPRESSION: Findings consistent with acute sigmoid diverticulitis with focal bowel perforation as described above . The degree of extraluminal air has decreased compared to the prior study. No new abnormalities seen . There is no bowel obstruction, free fluid or intra-abdominal or pelvic abscess. Small amount of por cedric vein air within the liver has resolved in the interval.
--- NOTE | 2022-06-13 16:09 | P.PN ---
Subjective Progress Note Date: 06/13/22 Principal diagnosis: Perforated diverticulitis and bacteremia Patient is a 37-year-old male with no significant past medical history presenting to the ER for evaluation of left-sided abdominal pain that the pain has been going on for about 3 days before presentation the hospital , patient has been diagnosed with perforated diverticulitis but no abscess and also have a positive blood culture subsequently finalized with coagulase negative staph. On today's evaluation that is 06/13/2022, patient denies having any fever or chills, the patient abdominal pain has decreased in intensity, patient denies having any chest pain shortness of breath or cough no nausea no vomiting no diarrhea Objective - Vital Signs Vital signs: Vital Signs Temp 98.4 F 06/13/22 13:53 Pulse 69 06/13/22 13:53 Resp 18 06/13/22 13:53 BP 110/63 06/13/22 13:53 Pulse Ox 95 06/13/22 13:53 FiO2 Intake & Output 06/12/22 06/13/22 06/13/22 18:59 06:59 18:59 Intake Total 100 Balance 100 Intake: Intake, IV Titration 100 Amount Piperacillin-Tazobactam 3 100 .375 gm In Sodium Chloride 0.9% 100 ml @ 25 mls/hr IVPB Q8H [facility] Rx#: [id number] Other: Voiding Method Toilet # Voids 2 2 # Bowel Movements 1 - Exam GENERAL DESCRIPTION: Middle-age male lying in bed in no distress RESPIRATORY SYSTEM: Unlabored breathing , decreased breath sounds at bases HEART: S1 S2 regular rate and rhythm , ABDOMEN: Soft , no tenderness EXTREMITIES: No edema feet - Labs CBC & Chem 7: 06/13/22 05:49 06/13/22 05:49 Labs: Abnormal Lab Results - Last 24 Hours (Table) 06/13/22 06/13/22 Range/Units 05:49 05:49 C-Reactive Protein 21.4 H (<1.0) mg/dL Total Protein 6.1 L (6.3-8.2) g/dL Procalcitonin 0.27 H (0.02-0.09) ng/mL Microbiology - Last 24 Hours (Table) 06/11/22 12:45 Blood Culture Gram Stain - Preliminary Blood Blood Culture - Preliminary Coagulase Negative Staph Coagulase Negative Staph#2 06/11/22 12:30 Blood Culture Gram Stain - Preliminary Blood Blood Culture - Preliminary Staphylococcus epidermidis Assessment and Plan (1) Positive blood culture Current Visit: Yes Status: Acute Code(s): R78.81 - BACTEREMIA SNOMED Code(s): 948831888 (2) Diverticulitis of colon with perforation Current Visit: Yes Status: Acute Code(s): K57.20 - DVTRCLI OF LG INT W PERFORATION AND ABSCESS W/O BLEEDING SNOMED Code(s): 56294140 Plan: 1patient presented to the hospital with acute abdominal pain left lower quadrant area this patient did have history of constipation with evidence of perforated diverticulitis and will need to call for the enteric gram-negative both aerobes and anaerobes. 2patient now with a positive blood culture with gram-positive cocci which has been finalized as coagulase negative staph likely skin contamination vancomycin has been discontinued 3 patient did have a repeat CAT scan completed this morning we did shows some improvement and no evidence of any abscess, patient to continue with the Zosyn for his underlying perforated diverticulitis and bowel rest, hopefully finishing therapy with oral antibiotics Time with Patient: Less than 30
--- NOTE | 2022-06-13 17:13 | P.PN ---
Progress Note - Text Progress Note Date: 06/13/22 Chief Complaint: Abdominal pain This is a pleasant 37-year-old patient follows with Dr. Pascual. Chronic stable medical conditions include gout, depression, anxiety. Patient accompanied by his in the ER. 2 nights ago patient started off with lower abdominal pain. Progressively got worse. Yesterday pain became rather severe in the evening. Patient said having fever or chills. Nausea. At her baseline patient's had 4-5 bowel movements a day for many years. Computed tomography scan in the ER showed perforated diverticulitis with some free air. Surgery option trader was was contacted, he wanted the patient to be admitted to internal medicine patient was started on IV Unasyn 06/12/2022: Up in bed. Pain better controlled with pain medications. No nausea vomiting. No BM. IV Zosyn. Patient was seen by surgery. Discussed with patient. Increase activity as tolerated. 06/13/2022: I do not see any notes from surgery. Computed tomography scan ordered by him shows more contained free air. Abdominal pain a bit better. Continue his ice chips. IV Zosyn. Ostomy increase activity. Active Medications Acetaminophen (Acetaminophen Tab 325 Mg Tab) 650 mg PO Q6HR PRN PRN Reason: Mild Pain or Fever > 100.5 Last Admin: 06/12/22 16:55 Dose: 650 mg Hydrocodone Bitart/Acetaminophen (Hydrocodone/Apap 5-325mg 1 Each Tab) 1 each PO Q6HR PRN PRN Reason: Moderate to Severe Pain (4-10) Last Admin: 06/11/22 16:38 Dose: 1 each Allopurinol (Allopurinol 100 Mg Tab) 100 mg PO HS [facility] Last Admin: 06/12/22 20:49 Dose: 100 mg Citalopram Hydrobromide (Citalopram Hydrobromide 10 Mg Tab) 10 mg PO HS [facility] Last Admin: 06/12/22 20:49 Dose: 10 mg Enoxaparin Sodium (Enoxaparin 40 Mg/0.4 Ml Syringe) 40 mg SQ DAILY [facility] Last Admin: 06/13/22 08:52 Dose: 40 mg Hydromorphone HCl (Hydromorphone 0.5 Mg/0.5 Ml Syringe) 0.5 mg IVP Q4HR PRN PRN Reason: Pain Last Admin: 06/13/22 06:24 Dose: 0.5 mg Piperacillin Sod/Tazobactam (Sod 3.375 gm/ Sodium Chloride) 100 mls @ 25 mls/hr IVPB Q8H [facility]; Protocol Last Admin: 06/13/22 08:52 Dose: 25 mls/hr Lorazepam (Lorazepam 0.5 Mg Tab) 0.5 mg PO Q6HR PRN PRN Reason: Anxiety Melatonin (Melatonin 3 Mg Tablet) 3 mg PO HS PRN PRN Reason: Insomnia Multivitamins (Multivitamins, Thera 1 Each Tab) 1 each PO HS [facility] Last Admin: 06/12/22 20:49 Dose: 1 each Naloxone HCl (Naloxone 0.4 Mg/Ml 1 Ml Vial) 0.2 mg IV Q2M PRN PRN Reason: Opioid Reversal Ondansetron HCl (Ondansetron 4 Mg/2 Ml Vial) 4 mg IVP Q4HR PRN PRN Reason: Nausea And Vomiting Last Admin: 06/13/22 06:25 Dose: 4 mg Trazodone HCl (Trazodone Hcl 100 Mg Tab) 100 mg PO HS [facility] Last Admin: 06/12/22 20:49 Dose: 100 mg Past medical history to include: Gout, depression, anxiety Social history: . 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 No smoking. Physical examination: VITAL SIGNS: Afebrile, 69, 18, 110/63, 95% room air GENERAL: BMI 43, reclining, comfortable EYES: Pupils equal. Conjunctiva normal. HEENT: External appearance of nose and ears normal, oral cavity grossly normal. NECK: JVD not raised; masses not palpable. HEART: First and second heart sounds are normal; no edema. LUNGS: Respiratory rate normal; clear to auscultation. ABDOMEN: Soft, much improved left lower quadrant tenderness, no guarding rigidity, liver spleen not palpable, no masses palpable. PSYCH: Alert and oriented x3; mood and affect normal. INVESTIGATIONS, reviewed in the clinical context: Computed tomography scan abdominal pelvis [June 13]: Trachea acute sigmoid colon down to colitis with focal bowel perforation. Extraocular minute and has decreased compared to the [place]. No new abnormalities. June 13: White count 8 hemoglobin 13.4 platelets 210 potassium 3.8 creatinine 0.99 CRP 21.4. Procalcitonin 0.27 June 12: White count 9 hemoglobin 13.6 platelets 185 potassium 4.1 creatinine is 0.98 White count 9.5 hemoglobin 15.1 platelets 196 potassium 4.3 BUN 15 creatinine 1.[address] angiogram abdomen pelvis: Perforated acute diverticulitis proximal sigmoid colon. More details and the result Assessment and plan: -Acute sigmoid colon diverticulitis with perforation. causing sepsis : Some improvement in the computed tomography scan done on June 13 IV Zosyn. Only ice chips, medications. Follow with general surgery -Sepsis secondary to sigmoid diverticulitis and perforation: Better IV fluids. IV Zosyn -Chronic gout/hyperuricemia Allopurinol -Anxiety depression otherwise specified Celexa, trazodone -Chronic insomnia Trazodone -Morbid obesity BMI 43 Weight loss measures IV Zosyn. Continue ice chips. Increase daily. Follow with surgery. Disc ussed.
--- NOTE | 2022-06-13 19:17 | P.CON ---
Consult Note - . Consult date: 06/11/22 Assessment/Plan:: This is a pleasant 37-year-old patient follows with Dr. Pascual. Chronic stable medical conditions include gout, depression, anxiety. Patient accompanied by his in the ER. 2 nights ago patient started off with lower abdominal pain. Progressively got worse. Yesterday pain became rather severe in the evening. Patient said having fever or chills. Nausea. At her baseline patient's had 4-5 bowel movements a day for many years. Computed tomography scan in the ER showed perforated diverticulitis with some free air. Surgery subcontract administrator was was contacted, he wanted the patient to be admitted to internal medicine patient was started on IV Unasyn Review of systems: GEN.: Fever chills decreased appetite EYES: None HEENT: None NECK: None RESPIRATORY: None CARDIOVASCULAR: None GASTROINTESTINAL: Chronic diarrhea GENITOURINARY: None MUSCULOSKELETAL: None LYMPHATICS: None HEMATOLOGICAL: None PSYCHIATRY: None NEUROLOGICAL: None. Past medical history to include: Gout, depression, anxiety Social history: . 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 No smoking. Physical examination: VITAL SIGNS: 101.3, 78, 18, 106/59, 97% room air GENERAL: BMI 43, declining in bed, but uncomfortable. EYES: Pupils equal. Conjunctiva normal. HEENT: External appearance of nose and ears normal, oral cavity grossly normal. NECK: JVD not raised; masses not palpable. HEART: First and second heart sounds are normal; no edema. LUNGS: Respiratory rate normal; clear to auscultation. ABDOMEN: Soft, left lower quadrant tenderness, no guarding rigidity, liver spleen not palpable, no masses palpable. PSYCH: Alert and oriented x3; mood and affect normal. MUSCULOSKELETAL:No Clubbing/cyanosis;muscles-grossly intact NEUROLOGICAL: Cranial nerves grossly intact; no facial asymmetry, power and sensation grossly intact. LYMPHATICS: No lymph nodes palpable in the axilla and neck INVESTIGATIONS, reviewed in the clinical context: White count 9.5 hemoglobin 15.1 platelets 196 potassium 4.3 BUN 15 creatinine 1.[address] angiogram abdomen pelvis: Perforated acute diverticulitis proximal sigmoid colon. More details and the result Assessment and plan: -Acute sigmoid colon diverticulitis with perforation. With causing sepsis with a fever no 101.3 Start IV Zosyn. Nothing by mouth except ice chips, medications. Follow with general surgery -Sepsis secondary to sigmoid diverticulitis and perforation IV fluids. IV antibiotics -Chronic gout/hyperuricemia Allopurinol -Anxiety depression otherwise specified Celexa, trazodone -Chronic insomnia Trazodone -Morbid obesity BMI 43 Weight loss measures IV Zosyn. Nothing by mouth except medications. Follow with general surgery. Care was discussed with the patient at the bedside. Questions answered. This is a pleasant 37-year-old patient follows with Dr. Pascual. Chronic stable medical conditions include gout, depression, anxiety. Patient accompanied by his in the ER. 2 nights ago patient started off with lower abdominal pain. Progressively got worse. Yesterday pain became rather severe in the evening. Patient said having fever or chills. Nausea. At her baseline patient's had 4-5 bowel movements a day for many years. Computed tomography scan in the ER showed perforated diverticulitis with some free air. Surgery subcontract administrator was was contacted, he wanted the patient to be admitted to internal medicine patient was started on IV Unasyn Review of systems: GEN.: Fever chills decreased appetite EYES: None HEENT: None NECK: None RESPIRATORY: None CARDIOVASCULAR: None GASTROINTESTINAL: Chronic diarrhea GENITOURINARY: None MUSCULOSKELETAL: None LYMPHATICS: None HEMATOLOGICAL: None PSYCHIATRY: None NEUROLOGICAL: None. Past medical history to include: Gout, depression, anxiety Social history: . 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 No smoking. Physical examination: VITAL SIGNS: 101.3, 78, 18, 106/59, 97% room air GENERAL: BMI 43, declining in bed, but uncomfortable. EYES: Pupils equal. Conjunctiva normal. HEENT: External appearance of nose and ears normal, oral cavity grossly normal. NECK: JVD not raised; masses not palpable. HEART: First and second heart sounds are normal; no edema. LUNGS: Respiratory rate normal; clear to auscultation. ABDOMEN: Soft, left lower quadrant tenderness, no guarding rigidity, liver spleen not palpable, no masses palpable. PSYCH: Alert and oriented x3; mood and affect normal. MUSCULOSKELETAL:No Clubbing/cyanosis;muscles-grossly intact NEUROLOGICAL: Cranial nerves grossly intact; no facial asymmetry, power and sensation grossly intact. LYMPHATICS: No lymph nodes palpable in the axilla and neck INVESTIGATIONS, reviewed in the clinical context: White count 9.5 hemoglobin 15.1 platelets 196 potassium 4.3 BUN 15 creatinine 1.[address] angiogram abdomen pelvis: Perforated acute diverticulitis proximal sigmoid colon. More details and the result Assessment and plan: -Acute sigmoid colon diverticulitis with perforation. localized, no peritonitis. will admit, hydrate, IV antibiotics, no immediate surgical intervention, Repeat CT in 48 h, if there is an abscess will drain by IR, if not total 2 weeks antibiotics. Colonoscopy in 6 weeks. F/U as an outpatinet for plans for an ellective sigmoid resection as an outpatint. the other option is to f/u as needed if colonboscopy is negative, the risk of recurrence is 33% in 5 yerars
--- NOTE | 2022-06-13 19:29 | P.PN ---
Subjective Progress Note Date: 06/12/22 Principal diagnosis: acute diverticulitis with localized perforation Patient is a 37-year-old male with no significant past medical history presenting to the ER for evaluation of left-sided abdominal pain that the pain has been going on for about 3 days before presentation the hospital , patient has been diagnosed with perforated diverticulitis but no abscess and also have a positive blood culture subsequently finalized with coagulase negative staph. On today's evaluation that is 06/13/2022, patient denies having any fever or chills, the patient abdominal pain has decreased in intensity, patient denies having any chest pain shortness of breath or cough no nausea no vomiting no diarrhea improving with IV antibiotics Objective - Vital Signs Vital signs: Vital Signs Temp 98.4 F 06/13/22 13:53 Pulse 69 06/13/22 13:53 Resp 18 06/13/22 13:53 BP 110/63 06/13/22 13:53 Pulse Ox 95 06/13/22 13:53 FiO2 Intake & Output 06/13/22 06/13/22 06/14/22 06:59 18:59 06:59 Intake Total 100 Balance 100 Intake: Intake, IV Titration 100 Amount Piperacillin-Tazobactam 3 100 .375 gm In Sodium Chloride 0.9% 100 ml @ 25 mls/hr IVPB Q8H [facility] Rx#: [id number] Other: Voiding Method Toilet # Voids 2 4 - Constitutional General appearance: Present: cooperative, morbidly obese, no acute distress - EENT Eyes: Absent: abnormal pupil, anicteric sclerae, disc margins sharp, edentulous, EOMI, PERRLA, fundus normal, photophobia, dentition normal, poor dentition, ptosis, scleral icterus, normal appearance - Neck Neck: Absent: lymphadenopathy, normal ROM, other, rigidity, stridor, thyromegaly - Respiratory Respiratory: bilateral: CTA, negative: dullness, rales, rhonchi, wheezing - Cardiovascular Rhythm: regular Heart sounds: normal: S1, S2 - Integumentary Integumentary: Absent: calor, cellulitis, cyanotic, decreased turgor, flushed, jaundiced, normal, normal turgor, pale, rash, ulcer - Neurologic Neurologic: Absent: CNII-XII intact, focal deficits - Labs CBC & Chem 7: 06/13/22 05:49 06/13/22 05:49 Labs: Abnormal Lab Results - Last 24 Hours (Table) 06/13/22 06/13/22 Range/Units 05:49 05:49 C-Reactive Protein 21.4 H (<1.0) mg/dL Total Protein 6.1 L (6.3-8.2) g/dL Procalcitonin 0.27 H (0.02-0.09) ng/mL Microbiology - Last 24 Hours (Table) 06/11/22 12:45 Blood Culture Gram Stain - Preliminary Blood Blood Culture - Preliminary Coagulase Negative Staph Coagulase Negative Staph#2 06/11/22 12:30 Blood Culture Gram Stain - Preliminary Blood Blood Culture - Preliminary Staphylococcus epidermidis Assessment and Plan (1) Diverticulitis of colon with perforation Current Visit: Yes Status: Acute Priority: Medium Code(s): K57.20 - DVTRCLI OF LG INT W PERFORATION AND ABSCESS W/O BLEEDING SNOMED Code(s): 76055431 Plan: continue IV antibiotics improving exam no surgical intervention
--- NOTE | 2022-06-13 19:42 | P.PN ---
Subjective Progress Note Date: 06/13/22 Principal diagnosis: acute diverticulitis improving Patient is a 37-year-old male with no significant past medical history presenting to the ER for evaluation of left-sided abdominal pain that the pain has been going on for about 3 days before presentation the hospital , patient has been diagnosed with perforated diverticulitis but no abscess and also have a positive blood culture subsequently finalized with coagulase negative staph. On today's evaluation that is 06/13/2022, patient denies having any fever or chills, the patient abdominal pain has decreased in intensity, patient denies having any chest pain shortness of breath or cough no nausea no vomiting no diarrhea improving CT today improved from yesterday Objective - Vital Signs Vital signs: Vital Signs Temp 98.4 F 06/13/22 13:53 Pulse 69 06/13/22 13:53 Resp 18 06/13/22 13:53 BP 110/63 06/13/22 13:53 Pulse Ox 95 06/13/22 13:53 FiO2 Intake & Output 06/13/22 06/13/22 06/14/22 06:59 18:59 06:59 Intake Total 100 Balance 100 Intake: Intake, IV Titration 100 Amount Piperacillin-Tazobactam 3 100 .375 gm In Sodium Chloride 0.9% 100 ml @ 25 mls/hr IVPB Q8H [facility] Rx#: [id number] Other: Voiding Method Toilet # Voids 2 4 - Constitutional General appearance: Present: cooperative, morbidly obese - EENT Eyes: Absent: abnormal pupil, anicteric sclerae, disc margins sharp, edentulous, EOMI, PERRLA, fundus normal, photophobia, dentition normal, poor dentition, ptosis, scleral icterus, normal appearance - Respiratory Respiratory: bilateral: CTA, negative: rales, rhonchi, wheezing - Cardiovascular Rhythm: regular Heart sounds: normal: S1, S2 - Gastrointestinal General gastrointestinal: Present: normal bowel sounds, soft, umbilical hernia. Absent: tenderness - Labs CBC & Chem 7: 06/13/22 05:49 06/13/22 05:49 Labs: Abnormal Lab Results - Last 24 Hours (Table) 06/13/22 06/13/22 Range/Units 05:49 05:49 C-Reactive Protein 21.4 H (<1.0) mg/dL Total Protein 6.1 L (6.3-8.2) g/dL Procalcitonin 0.27 H (0.02-0.09) ng/mL Microbiology - Last 24 Hours (Table) 06/11/22 12:45 Blood Culture Gram Stain - Preliminary Blood Blood Culture - Preliminary Coagulase Negative Staph Coagulase Negative Staph#2 06/11/22 12:30 Blood Culture Gram Stain - Preliminary Blood Blood Culture - Preliminary Staphylococcus epidermidis Assessment and Plan (1) Diverticulitis of colon with perforation Current Visit: Yes Status: Acute Priority: Medium Code(s): K57.20 - DVTRCLI OF LG INT W PERFORATION AND ABSCESS W/O BLEEDING SNOMED Code(s): 85558956
[2022-06-13] MEDS: allopurinoL 100 MG TAB PO SCH (21:13)
[2022-06-13] MEDS: MULTIVITAMINS, THERA 1 EACH TAB PO SCH (21:13)
[2022-06-13] MEDS: CITALOPRAM HYDROBROMIDE 10 MG TAB PO SCH (21:14)
[2022-06-13] MEDS: traZODone HCL 100 MG TAB PO SCH (21:14)
[2022-06-14] MEDS: PIPERACILLIN-TAZOBACTAM 3.375 GM in SODIUM CHLORIDE 0.9% 100 ML IVPB SCH ×3 (01:11→17:43)
[2022-06-14] MEDS: ENOXAPARIN 40 MG/0.4 ML SYRINGE SQ SCH (09:04)
--- NOTE | 2022-06-14 15:51 | P.PN ---
Progress Note - Text Progress Note Date: 06/14/22 Chief Complaint: Abdominal pain This is a pleasant 37-year-old patient follows with Dr. Pascual. Chronic stable medical conditions include gout, depression, anxiety. Patient accompanied by his in the ER. 2 nights ago patient started off with lower abdominal pain. Progressively got worse. Yesterday pain became rather severe in the evening. Patient said having fever or chills. Nausea. At her baseline patient's had 4-5 bowel movements a day for many years. Computed tomography scan in the ER showed perforated diverticulitis with some free air. Surgery sponge clipper was was contacted, he wanted the patient to be admitted to internal medicine patient was started on IV Unasyn 06/12/2022: Up in bed. Pain better controlled with pain medications. No nausea vomiting. No BM. IV Zosyn. Patient was seen by surgery. Discussed with patient. Increase activity as tolerated. 06/13/2022: I do not see any notes from surgery. Computed tomography scan ordered by him shows more contained free air. Abdominal pain a bit better. Continue his ice chips. IV Zosyn. Ostomy increase activity. 06/14/2022: Patient of Phill pain is better. Having some liquid stools. No nausea vomiting. Advance diet to clear liquid diet. Activity as tolerated. Follow with surgery. IV Zosyn. Active Medications Acetaminophen (Acetaminophen Tab 325 Mg Tab) 650 mg PO Q6HR PRN PRN Reason: Mild Pain or Fever > 100.5 Last Admin: 06/12/22 16:55 Dose: 650 mg Hydrocodone Bitart/Acetaminophen (Hydrocodone/Apap 5-325mg 1 Each Tab) 1 each PO Q6HR PRN PRN Reason: Moderate to Severe Pain (4-10) Last Admin: 06/11/22 16:38 Dose: 1 each Allopurinol (Allopurinol 100 Mg Tab) 100 mg PO HS [facility] Last Admin: 06/13/22 21:13 Dose: 100 mg Citalopram Hydrobromide (Citalopram Hydrobromide 10 Mg Tab) 10 mg PO HS [facility] Last Admin: 06/13/22 21:14 Dose: 10 mg Enoxaparin Sodium (Enoxaparin 40 Mg/0.4 Ml Syringe) 40 mg SQ DAILY [facility] Last Admin: 06/14/22 09:04 Dose: 40 mg Hydromorphone HCl (Hydromorphone 0.5 Mg/0.5 Ml Syringe) 0.5 mg IVP Q4HR PRN PRN Reason: Pain Last Admin: 06/13/22 06:24 Dose: 0.5 mg Piperacillin Sod/Tazobactam (Sod 3.375 gm/ Sodium Chloride) 100 mls @ 25 mls/hr IVPB Q8H [facility]; Protocol Last Admin: 06/14/22 09:04 Dose: 25 mls/hr Lorazepam (Lorazepam 0.5 Mg Tab) 0.5 mg PO Q6HR PRN PRN Reason: Anxiety Melatonin (Melatonin 3 Mg Tablet) 3 mg PO HS PRN PRN Reason: Insomnia Multivitamins (Multivitamins, Thera 1 Each Tab) 1 each PO HS [facility] Last Admin: 06/13/22 21:13 Dose: 1 each Naloxone HCl (Naloxone 0.4 Mg/Ml 1 Ml Vial) 0.2 mg IV Q2M PRN PRN Reason: Opioid Reversal Ondansetron HCl (Ondansetron 4 Mg/2 Ml Vial) 4 mg IVP Q4HR PRN PRN Reason: Nausea And Vomiting Last Admin: 06/13/22 06:25 Dose: 4 mg Trazodone HCl (Trazodone Hcl 100 Mg Tab) 100 mg PO HS [facility] Last Admin: 06/13/22 21:14 Dose: 100 mg Past medical history to include: Gout, depression, anxiety Social history: . 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 Alcohol rarely. No smoking. Physical examination: VITAL SIGNS: 97.8, 66, 17, 134/80, 95% room air GENERAL: BMI 43, reclining, comfortable EYES: Pupils equal. Conjunctiva normal. HEENT: External appearance of nose and ears normal, oral cavity grossly normal. NECK: JVD not raised; masses not palpable. HEART: First and second heart sounds are normal; no edema. LUNGS: Respiratory rate normal; clear to auscultation. ABDOMEN: Soft, improved left lower quadrant tenderness, no guarding rigidity, liver spleen not palpable, no masses palpable. PSYCH: Alert and oriented x3; mood and affect normal. INVESTIGATIONS, reviewed in the clinical context: Computed tomography scan abdominal pelvis [June 13]: Trachea acute sigmoid colon down to colitis with focal bowel perforation. Extraocular minute and has decreased compared to the Presti. No new abnormalities. June 13: White count 8 hemoglobin 13.4 platelets 210 potassium 3.8 creatinine 0.99 CRP 21.4. Procalcitonin 0.27 June 12: White count 9 hemoglobin 13.6 platelets 185 potassium 4.1 creatinine is 0.98 White count 9.5 hemoglobin 15.1 platelets 196 potassium 4.3 BUN 15 creatinine 1.[address] angiogram abdomen pelvis: Perforated acute diverticulitis proximal sigmoid colon. More details and the result Assessment and plan: -Acute sigmoid colon diverticulitis with perforation. causing sepsis : Some improvement in the computed tomography scan done on June 13 IV Zosyn. Advance to clear liquids. Follow with general surgery -Sepsis secondary to sigmoid diverticulitis and perforation: Better IV fluids. IV Zosyn -Chronic gout/hyperuricemia Allopurinol -Anxiety depression otherwise specified Celexa, trazodone -Chronic insomnia Trazodone -Morbid obesity BMI 43 Weight loss measures IV Zosyn. Advance to clear liquids. Increase activity. Discussed length with the patient. Questions answered.
--- NOTE | 2022-06-14 16:38 | P.PN ---
Subjective Progress Note Date: 06/14/22 Principal diagnosis: Perforated diverticulitis and bacteremia Patient is a 37-year-old male with no significant past medical history presenting to the ER for evaluation of left-sided abdominal pain that the pain has been going on for about 3 days before presentation the hospital , patient has been diagnosed with perforated diverticulitis but no abscess and also have a positive blood culture subsequently finalized with coagulase negative staph. On today's evaluation that is 06/14/2022, patient remains to be afebrile, the patient abdominal pain has decreased in intensity, patient denies having any chest pain shortness of breath or cough no nausea no vomiting no diarrhea, feeling slightly better Objective - Vital Signs Vital signs: Vital Signs Temp 97.8 F 06/14/22 14:00 Pulse 66 06/14/22 14:00 Resp 17 06/14/22 14:00 BP 134/80 06/14/22 14:00 Pulse Ox 95 06/14/22 14:00 FiO2 Intake & Output 06/13/22 06/14/22 06/14/22 18:59 06:59 18:59 Intake Total 100 Balance 100 Intake: Intake, IV Titration 100 Amount Piperacillin-Tazobactam 3 100 .375 gm In Sodium Chloride 0.9% 100 ml @ 25 mls/hr IVPB Q8H [facility] Rx#: [id number] Other: Voiding Method Toilet Toilet # Voids 4 3 # Bowel Movements 2 - Exam GENERAL DESCRIPTION: Middle-age male lying in bed in no distress RESPIRATORY SYSTEM: Unlabored breathing , decreased breath sounds at bases HEART: S1 S2 regular rate and rhythm , ABDOMEN: Soft , no tenderness EXTREMITIES: No edema feet - Labs CBC & Chem 7: 06/13/22 05:49 06/13/22 05:49 Labs: Microbiology - Last 24 Hours (Table) 06/11/22 12:45 Blood Culture Gram Stain - Final Blood Blood Culture - Final Staphylococcus epidermidis Coagulase Negative Staph 06/11/22 12:30 Blood Culture Gram Stain - Final Blood Blood Culture - Final Staphylococcus epidermidis 06/13/22 05:49 Blood Culture - Preliminary Blood No Growth after 24 hours Assessment and Plan (1) Positive blood culture Current Visit: Yes Status: Acute Code(s): R78.81 - BACTEREMIA SNOMED Code(s): 609021053 (2) Diverticulitis of colon with perforation Current Visit: Yes Status: Acute Priority: Medium Code(s): K57.20 - DVTRCLI OF LG INT W PERFORATION AND ABSCESS W/O BLEEDING SNOMED Code(s): 34879807 Plan: 1patient presented to the hospital with acute abdominal pain left lower quadrant area this patient did have history of constipation with evidence of perforated diverticulitis and will need to call for the enteric gram-negative both aerobes and anaerobes. 2patient now with a positive blood culture with gram-positive cocci which has been finalized as coagulase negative staph likely skin contamination, repeat blood culture negative no need for vancomycin 3 patient did have a repeat CAT scan completed on 06/13/2022 we did shows some improvement and no evidence of any abscess, patient to continue with the Zosyn for his underlying perforated diverticulitis and has been started on a clear liquid diet to make sure he tolerates it and monitor clinical course closely Time with Patient: Less than 30
[2022-06-14] MEDS: MULTIVITAMINS, THERA 1 EACH TAB PO SCH (21:21)
[2022-06-14] MEDS: traZODone HCL 100 MG TAB PO SCH (21:21)
[2022-06-14] MEDS: allopurinoL 100 MG TAB PO SCH (21:21)
[2022-06-14] MEDS: CITALOPRAM HYDROBROMIDE 10 MG TAB PO SCH (21:21)
[2022-06-15] MEDS: PIPERACILLIN-TAZOBACTAM 3.375 GM in SODIUM CHLORIDE 0.9% 100 ML IVPB SCH ×3 (02:06→18:34)
[2022-06-15] MEDS: ENOXAPARIN 40 MG/0.4 ML SYRINGE SQ SCH (09:51)
--- NOTE | 2022-06-15 19:07 | P.PN ---
Subjective Progress Note Date: 06/15/22 Principal diagnosis: Perforated diverticulitis and bacteremia Patient is a 37-year-old male with no significant past medical history presenting to the ER for evaluation of left-sided abdominal pain that the pain has been going on for about 3 days before presentation the hospital , patient has been diagnosed with perforated diverticulitis but no abscess and also have a positive blood culture subsequently finalized with coagulase negative staph. On today's evaluation that is 06/15/2022, patient continues to be afebrile, the patient abdominal pain has decreased in intensity and the patient to be tolerating his diet denies having any nausea no vomiting no chest pain shortness of breath or cough Objective - Vital Signs Vital signs: Vital Signs Temp 97.6 F 06/15/22 07:37 Pulse 56 L 06/15/22 07:37 Resp 17 06/15/22 07:37 BP 112/77 06/15/22 07:37 Pulse Ox 97 06/15/22 07:37 FiO2 Intake & Output 06/14/22 06/15/22 06/15/22 18:59 06:59 18:59 Other: Voiding Method Toilet Toilet Toilet # Voids 5 2 2 - Exam GENERAL DESCRIPTION: Middle-age male lying in bed in no distress RESPIRATORY SYSTEM: Unlabored breathing , decreased breath sounds at bases HEART: S1 S2 regular rate and rhythm , ABDOMEN: Soft , no tenderness EXTREMITIES: No edema feet - Labs CBC & Chem 7: 06/13/22 05:49 06/13/22 05:49 Labs: Microbiology - Last 24 Hours (Table) 06/13/22 05:49 Blood Culture - Preliminary Blood No Growth after 48 hours 06/11/22 12:45 Blood Culture Gram Stain - Final Blood Blood Culture - Final Staphylococcus epidermidis Coagulase Negative Staph 06/11/22 12:30 Blood Culture Gram Stain - Final Blood Blood Culture - Final Staphylococcus epidermidis Assessment and Plan (1) Positive blood culture Current Visit: Yes Status: Acute Code(s): R78.81 - BACTEREMIA SNOMED Code(s): 080077969 (2) Diverticulitis of colon with perforation Current Visit: Yes Status: Acute Priority: Medium Code(s): K57.20 - DVTRCLI OF LG INT W PERFORATION AND ABSCESS W/O BLEEDING SNOMED Code(s): 54603469 Plan: 1patient presented to the hospital with acute abdominal pain left lower quadrant area this patient did have history of constipation with evidence of perforated diverticulitis and will need to call for the enteric gram-negative both aerobes and anaerobes. 2patient now with a positive blood culture with gram-positive cocci which has been finalized as coagulase negative staph likely skin contamination, repeat blood culture negative no need for vancomycin 3 patient did have a repeat CAT scan completed on 06/13/2022 we did shows some improvement and no evidence of any abscess, patient diet has been slowly a dvanced we will continue the patient on Zosyn plan to finish therapy with oral antibiotics Time with Patient: Less than 30
[2022-06-15] MEDS: allopurinoL 100 MG TAB PO SCH (20:53)
[2022-06-15] MEDS: CITALOPRAM HYDROBROMIDE 10 MG TAB PO SCH (20:53)
[2022-06-15] MEDS: traZODone HCL 100 MG TAB PO SCH (20:53)
[2022-06-15] MEDS: MULTIVITAMINS, THERA 1 EACH TAB PO SCH (20:53)
--- NOTE | 2022-06-15 21:04 | P.PN ---
Progress Note - Text Progress Note Date: 06/15/22 Chief Complaint: Abdominal pain This is a pleasant 37-year-old patient follows with Dr. Pascual. Chronic stable medical conditions include gout, depression, anxiety. Patient accompanied by his in the ER. 2 nights ago patient started off with lower abdominal pain. Progressively got worse. Yesterday pain became rather severe in the evening. Patient said having fever or chills. Nausea. At her baseline patient's had 4-5 bowel movements a day for many years. Computed tomography scan in the ER showed perforated diverticulitis with some free air. Surgery suction plate roller hand was was contacted, he wanted the patient to be admitted to internal medicine patient was started on IV Unasyn 06/12/2022: Up in bed. Pain better controlled with pain medications. No nausea vomiting. No BM. IV Zosyn. Patient was seen by surgery. Discussed with patient. Increase activity as tolerated. 06/13/2022: I do not see any notes from surgery. Computed tomography scan ordered by him shows more contained free air. Abdominal pain a bit better. Continue his ice chips. IV Zosyn. Ostomy increase activity. 06/14/2022: Patient of Phill pain is better. Having some liquid stools. No nausea vomiting. Advance diet to clear liquid diet. Activity as tolerated. Follow with surgery. IV Zosyn. 06/15/2022: Pain much improved. Hasn't taken any IV pain medicine since yesterday morning. Some liquid stools. No nausea vomiting. Told the nurse to have patient advanced to full liquids if okay with surgery. IV Zosyn. Active Medications Acetaminophen (Acetaminophen Tab 325 Mg Tab) 650 mg PO Q6HR PRN PRN Reason: Mild Pain or Fever > 100.5 Last Admin: 06/12/22 16:55 Dose: 650 mg Hydrocodone Bitart/Acetaminophen (Hydrocodone/Apap 5-325mg 1 Each Tab) 1 each PO Q6HR PRN PRN Reason: Moderate to Severe Pain (4-10) Last Admin: 06/11/22 16:38 Dose: 1 each Allopurinol (Allopurinol 100 Mg Tab) 100 mg PO HS [facility] Last Admin: 06/15/22 20:53 Dose: 100 mg Citalopram Hydrobromide (Citalopram Hydrobromide 10 Mg Tab) 10 mg PO HS [facility] Last Admin: 06/15/22 20:53 Dose: 10 mg Enoxaparin Sodium (Enoxaparin 40 Mg/0.4 Ml Syringe) 40 mg SQ DAILY [facility] Last Admin: 06/15/22 09:51 Dose: 40 mg Piperacillin Sod/Tazobactam (Sod 3.375 gm/ Sodium Chloride) 100 mls @ 25 mls/hr IVPB Q8H [facility]; Protocol Last Admin: 06/15/22 18:34 Dose: 25 mls/hr Lorazepam (Lorazepam 0.5 Mg Tab) 0.5 mg PO Q6HR PRN PRN Reason: Anxiety Melatonin (Melatonin 3 Mg Tablet) 3 mg PO HS PRN PRN Reason: Insomnia Last Admin: 06/15/22 20:54 Dose: 3 mg Multivitamins (Multivitamins, Thera 1 Each Tab) 1 each PO HS [facility] Last Admin: 06/15/22 20:53 Dose: 1 each Naloxone HCl (Naloxone 0.4 Mg/Ml 1 Ml Vial) 0.2 mg IV Q2M PRN PRN Reason: Opioid Reversal Ondansetron HCl (Ondansetron 4 Mg/2 Ml Vial) 4 mg IVP Q4HR PRN PRN Reason: Nausea And Vomiting Last Admin: 06/13/22 06:25 Dose: 4 mg Trazodone HCl (Trazodone Hcl 100 Mg Tab) 100 mg PO HS [facility] Last Admin: 06/15/22 20:53 Dose: 100 mg Past medical history to include: Gout, depression, anxiety Social history: . 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 No smoking. Physical examination: VITAL SIGNS: 97.6, 56, 17, 112/77, 97% room air GENERAL: BMI 43, reclining, comfortable EYES: Pupils equal. Conjunctiva normal. HEENT: External appearance of nose and ears normal, oral cavity grossly normal. NECK: JVD not raised; masses not palpable. HEART: First and second heart sounds are normal; no edema. LUNGS: Respiratory rate normal; clear to auscultation. ABDOMEN: Soft, minimal left lower quadrant tenderness, no guarding rigidity, liver spleen not palpable, no masses palpable. PSYCH: Alert and oriented x3; mood and affect normal. INVESTIGATIONS, reviewed in the clinical context: Computed tomography scan abdominal pelvis [June 13]: Trachea acute sigmoid colon down to colitis with focal bowel perforation. Extraocular minute and has decreased compared to the Presti. No new abnormalities. June 13: White count 8 hemoglobin 13.4 platelets 210 potassium 3.8 creatinine 0.99 CRP 21.4. Procalcitonin 0.27 June 12: White count 9 hemoglobin 13.6 platelets 185 potassium 4.1 creatinine is 0.98 White count 9.5 hemoglobin 15.1 platelets 196 potassium 4.3 BUN 15 creatinine 1.[address] angiogram abdomen pelvis: Perforated acute diverticulitis proximal sigmoid colon. More details and the result Assessment and plan: -Acute sigmoid colon diverticulitis with perforation. causing sepsis : Some improvement in the computed tomography scan done on June 13 IV Zosyn. Advance to full liquids. Follow with general surgery -Sepsis secondary to sigmoid diverticulitis and perforation: Better IV fluids. IV Zosyn -Chronic gout/hyperuricemia Allopurinol -Anxiety depression otherwise specified Celexa, trazodone -Chronic insomnia Trazodone -Morbid obesity BMI 43 Weight loss measures IV Zosyn. Advance to full. Patient did ambulate in the hallway. Improving.
[2022-06-16] MEDS: PIPERACILLIN-TAZOBACTAM 3.375 GM in SODIUM CHLORIDE 0.9% 100 ML IVPB SCH ×2 (00:53→09:15)
[2022-06-16 07:38] VITALS: BP 102/68; PULSE 56; RESP 16; TEMP 98.3
[2022-06-16 07:53] LABS: ALT 53 U/L (4-49); AST 32 U/L (17-59); African American GFR (CKD) >90 (>60 ml/min/1.73 sqM); Albumin 3.8 g/dL (3.5-5.0); Albumin/Globulin Ratio 1.4; Alkaline Phosphatase 67 U/L (38-126); Anion Gap 9 mmol/L; Blood Urea Nitrogen 10 mg/dL (9-20); Calcium 9.1 mg/dL (8.4-10.2); Carbon Dioxide 28 mmol/L (22-30); Chloride 106 mmol/L (98-107); Globulin 2.8 g/dL; Glucose 95 mg/dL (74-99); Non-African American GFR(CKD) 86 (>60 ml/min/1.73 sqM); Potassium 4.2 mmol/L (3.5-5.1); Sodium 143 mmol/L (137-145); Total Bilirubin 0.6 mg/dL (0.2-1.3); Total Protein 6.6 g/dL (6.3-8.2)
[2022-06-16 08:14] LABS: Basophils % (A) 0 %; Eosinophils # (A) 0.2 k/uL (0-0.7); Eosinophils % (A) 3 %; HCT 41.5 % (39.0-53.0); HGB 14.4 gm/dL (13.0-17.5); Lymphocytes # (A) 1.5 k/uL (1.0-4.8); Lymphocytes % (A) 30 %; MCHC 34.6 g/dL (31.0-37.0); MCV 83.6 fL (80.0-100.0); Mean Platelet Volume 7.3; Monocytes # (A) 0.3 k/uL (0-1.0); Monocytes % (A) 5 %; Neutrophils # (A) 2.9 k/uL (1.3-7.7); Neutrophils % (A) 60 %; Platelet Count 271 k/uL (150-450); Poikilocytosis Slight; RBC 4.96 m/uL (4.30-5.90); RDW 14.6 % (11.5-15.5); WBC 4.9 k/uL (3.8-10.6)
[2022-06-16] MEDS: ENOXAPARIN 40 MG/0.4 ML SYRINGE SQ SCH (09:15)
--- NOTE | 2022-06-16 15:20 | P.PN ---
Subjective Progress Note Date: 06/16/22 Principal diagnosis: Perforated diverticulitis and bacteremia Patient is a 37-year-old male with no significant past medical history presenting to the ER for evaluation of left-sided abdominal pain that the pain has been going on for about 3 days before presentation the hospital , patient has been diagnosed with perforated diverticulitis but no abscess and also have a positive blood culture subsequently finalized with coagulase negative staph. On today's evaluation that is 06/16/2022, patient remains to be afebrile, the patient abdominal pain has decreased in intensity and the patient has been tolerating his diet, the patient denies having any nausea no vomiting no chest pain shortness of breath or cough Objective - Vital Signs Vital signs: Vital Signs Temp 98.3 F 06/16/22 07:07 Pulse 56 L 06/16/22 07:07 Resp 16 06/16/22 07:07 BP 102/68 06/16/22 07:07 Pulse Ox 97 06/16/22 07:07 FiO2 Intake & Output 06/15/22 06/16/22 06/16/22 18:59 06:59 18:59 Intake Total 680 Balance 680 Intake: Intake, IV Titration 200 Amount Piperacillin-Tazobactam 3 200 .375 gm In Sodium Chloride 0.9% 100 ml @ 25 mls/hr IVPB Q8H [facility] Rx#: [id number] Oral 480 Other: Voiding Method Toilet # Voids 3 2 - Exam GENERAL DESCRIPTION: Middle-age male lying in bed in no distress RESPIRATORY SYSTEM: Unlabored breathing , decreased breath sounds at bases HEART: S1 S2 regular rate and rhythm , ABDOMEN: Soft , no tenderness EXTREMITIES: No edema feet - Labs CBC & Chem 7: 06/16/22 06:58 06/16/22 06:58 Labs: Abnormal Lab Results - Last 24 Hours (Table) 06/16/22 Range/Units 06:58 ALT 53 H (4-49) U/L Microbiology - Last 24 Hours (Table) 06/13/22 05:49 Blood Culture - Preliminary Blood No Growth after 72 hours Assessment and Plan (1) Positive blood culture Status: Acute Code(s): R78.81 - BACTEREMIA SNOMED Code(s): 242935094 (2) Diverticulitis of colon with perforation Status: Acute Priority: Medium Code(s): K57.20 - DVTRCLI OF LG INT W PERFORATION AND ABSCESS W/O BLEEDING SNOMED Code(s): 29208884 Plan: 1patient presented to the hospital with acute abdominal pain left lower quadrant area this patient did have history of constipation with evidence of perforated diverticulitis and will need to call for the enteric gram-negative both aerobes and anaerobes. 2patient now with a positive blood culture with gram-positive cocci which has been finalized as coagulase negative staph likely skin contamination, repeat blood culture negative no need for vancomycin 3 patient did have a repeat CAT scan completed on 06/13/2022 which did shows some improvement and no evidence of any abscess, patient has shown clinical improvement and the patient has been tolerating his diet white count is normal he will finish therapy with a ten-day course of oral Augmentin this condition was sent to the pharmacy, patient has been educated about his condition and how to prevent recurrent episodes of diverticulitis
== END 2022-06-16 13:59 | disposition home or self-care (01) | DRG 872 ==
LOC: EC 09:38 → 4SSUR 14:35
PROVIDERS: ADMIT Hospitalist; ATTEND Hospitalist
DX: A41.1 Sepsis due to other specified staphylococcus (principal); K57.20 Diverticulitis of large intestine with perforation and abscess without bleeding; Z68.41 Body mass index [BMI] 40.0-44.9, adult; M1A.9XX0 Chronic gout, unspecified, without tophus (tophi); F51.04 Psychophysiologic insomnia; E66.01 Morbid (severe) obesity due to excess calories; F32.A Depression, unspecified; F41.9 Anxiety disorder, unspecified; Z88.1 Allergy status to other antibiotic agents
CPT/HCPCS: 36415; 74177; 80053; 81001; 82150; 83605; 83690; 84145; 85025; 86140; 87040; 87077; 87186; 96361; 96365; 96375; 99291

== ENCOUNTER → 2023-03-01 | Outpatient (CLI) | payer BC ==
[2023-03-01 14:51] LABS: Basophils # (A) 0.03 X 10*3/uL (0.00-0.10); Basophils % (A) 0.6 %; Eosinophils # (A) 0.18 X 10*3/uL (0.04-0.35); Eosinophils % (A) 3.4 %; HCT 43.7 % (39.6-50.0); HGB 14.7 g/dL (13.0-17.0); Lymphocytes # (A) 2.02 X 10*3/uL (0.90-5.00); Lymphocytes % (A) 38.1 %; MCH 28.2 pg (27.0-32.0); MCHC 33.6 g/dL (32.0-37.0); MCV 83.7 FL (80.0-97.0); Monocytes % (A) 7.5 %; NRBC Per 100 WBC 0 X 10*3/uL (0.00-0.01); Neutrophils # (A) 2.66 X 10*3/uL (1.80-7.70); Neutrophils % (A) 50.2 %; Platelet Count 237 X 10*3/uL (140-440); RBC 5.22 X 10*6/uL (4.40-5.60); RDW 14.4 % (11.5-14.5)
[2023-03-01 15:18] LABS: ALT 56 U/L (10-49); Blood Urea Nitrogen 14.1 mg/dL (9.0-27.0); Calcium 9.1 mg/dL (8.7-10.3); Carbon Dioxide 21.6 mmol/L (21.6-31.8); Chloride 110 mmol/L (96-109); Chol/HDL Ratio 3.92 Ratio; Glucose 116 mg/dL (70-110); LDL Cholesterol,Calculated 59.5 mg/dL (0.0-131.0); Potassium 4.3 mmol/L (3.5-5.5); Prostate Specific Antigen 0.58 ng/mL (0.000-2.500); Sodium 143 mmol/L (135-145)
[2023-03-01 15:28] LABS: Appearance,Urine Clear (Clear); Bilirubin,Urine Negative (Negative); Blood,Urine Trace (Negative); Color,Urine Yellow (Yellow); Ketones,Urine Negative (Negative); Nitrite,Urine Negative (Negative); PH, Urine 5.5; Specific Gravity,Urine 1.023 (1.001-1.030); Urobilinogen,Urine 0.2 E.U./DL
[2023-03-01 15:31] LABS: Bacteria,Urine None Seen (None Seen)
== END | disposition home or self-care (01) ==
LOC: LABWHC1 09:27
PROVIDERS: ATTEND Family Medicine
DX: Z00.00 Encounter for general adult medical examination without abnormal findings (principal)
CPT/HCPCS: 36415; 80048; 80061; 81001; 83036; 84153; 84443; 84460; 85025